=== PATIENT | female | born 1990 | race Two or more races ===

== ENCOUNTER 2019-08-05 07:16 | Day surgery (SDC) | payer OTHER ==
[2019-07-29 12:21] LABS: ABSOLUTE EOSINOPHILS # (AUTO) 0.1 10^3/uL (0.0-0.6); ABSOLUTE LYMPHOCYTES (AUTO) 1.5 10^3/uL (0.5-4.7); ABSOLUTE MONOCYTES (AUTO) 0.4 10^3/uL (0.1-1.4); ABSOLUTE NEUT (AUTO) 2.1 10^3/uL (1.7-8.2); BASOPHILS % (AUTO) 0.7 % (0-2); EOSINOPHILS % (AUTO) 2.3 % (0-6); HEMATOCRIT 37.6 % (36.0-47.0); HEMOGLOBIN 12.6 g/dL (12.0-15.5); LYMPHOCYTES % (AUTO) 36.3 % (13-45); MEAN CORPUSCULAR HEMOGLOBIN 29.9 pg (27.0-33.4); MEAN CORPUSCULAR HGB CONC 33.6 g/dL (32.0-36.0); MEAN CORPUSCULAR VOLUME 89 fl (80-97); MONOCYTES % (AUTO) 10.4 % (3-13); PLATELET COUNT 267 10^3/uL (150-450); RED BLOOD COUNT 4.23 10^6/uL (3.72-5.28); RED CELL DISTRIBUTION WIDTH 13.8 % (11.5-14.0); SEGMENTED NEUTROPHILS % (AUTO) 50.3 % (42-78); TOTAL CELLS COUNTED % (AUTO) 100 %; WHITE BLOOD COUNT 4.2 10^3/uL (4.0-10.5)
[2019-07-29 12:47] LABS: ANION GAP 9 (5-19); BLOOD UREA NITROGEN 13 mg/dL (7-20); CALCIUM 9.9 mg/dL (8.4-10.2); CARBON DIOXIDE 27 mmol/L (22-30); CHLORIDE 103 mmol/L (98-107); GLUCOSE 88 mg/dL (75-110); POTASSIUM 4.9 mmol/L (3.6-5.0)
[~2019-08-05 07:16] MED LIST: CEFAZOLIN 1 GM/D5W RTU 1 GM/50 ML RTUPB IV ONE; CEFAZOLIN 1 GM/D5W RTU 1 GM/50 ML RTUPB IV PRN; LACTATED RINGERS 1000 ML IV PRN; LIDOCAINE 0.5% INJ-PF (5 MG/ML) 50 ML SDV SUBCUT PRN
[2019-08-05] MEDS ORDERED: BUPIVACAINE HCL 0.25% /EPINEPHRINE INJ/PF 30 ML SDV ONE (07:27)
[2019-08-05] MEDS ORDERED: FAMOTIDINE INJ/PF 20 MG/2 ML SDV IV ONE (07:47)
[2019-08-05] MEDS ORDERED: SCOPOLAMINE HYDROBROMIDE 1.5 MG PATCH.TD72 ONE (07:47)
[2019-08-05] MEDS ORDERED: MIDAZOLAM 2 MG/2 ML INJ ONE ×2 (07:47→08:53)
[2019-08-05] MEDS ORDERED: ONDANSETRON HCL INJ/PF 4 MG/2 ML SDV ONE (08:53)
[2019-08-05] MEDS ORDERED: FENTANYL CITRATE INJ/PF 100 MCG/2 ML AMPUL ONE (08:53)
[2019-08-05] MEDS ORDERED: DEXAMETHASONE SOD PHOSPHATE INJ 4 MG/1 ML VIAL ONE (08:53)
[2019-08-05] MEDS ORDERED: MORPHINE SULFATE 10 MG/ML INJ ONE (08:54)
[2019-08-05] MEDS ORDERED: PROPOFOL INJ 200 MG/20 ML VIAL IV ONE (08:54)
[2019-08-05] MEDS ORDERED: RINGERS SOLUTION,LACTATED 1,000 ML IV ONE (09:00)
[2019-08-05] MEDS ORDERED: BUPIVACAINE HCL 0.25% /EPINEPHRINE INJ/PF 30 ML SDV INFIL ONE (09:44)
[2019-08-05] MEDS ORDERED: MEPERIDINE HCL/PF INJ 25 MG/1 ML DISP.SYRIN IV PRN (09:52)
[2019-08-05] MEDS ORDERED: FENTANYL CITRATE INJ/PF 100 MCG/2 ML AMPUL IV PRN ×3 (09:52)
[2019-08-05] MEDS ORDERED: DIPHENHYDRAMINE HCL 50 MG/ML VIAL IV PRN (09:52)
[2019-08-05] MEDS ORDERED: MORPHINE SULFATE 10 MG/ML INJ IV PRN (09:52)
[2019-08-05] MEDS ORDERED: PROMETHAZINE HCL INJ 25 MG/1 ML VIAL IV PRN ×2 (09:52)
--- NOTE | 2019-08-05 10:16 | Discharge Summary ---
Discharge Summary (SDC) - Discharge Final Diagnosis: hidradinitis. Date of Surgery: 08/05/19 Discharge Date: 08/05/19 Condition: Good Forms: ASU Anesthesia D/C Instruction, Discharge POC-Surgical Service Referrals: BECCA SANFORD MD [ACTIVE STAFF] - 08/13/19 10:45 am Discharge Diet: As Tolerated Discharge Activity: Activity As Tolerated - change dressing tomorrow ok to shower and place dry dressing after shower. Report the Following to Your Physician Immediately: Increase in Pain, Unusual Bleeding - needs f/u in 2wks
[2019-08-05] MEDS ORDERED: OXYCODONE-ACETAMINOPHEN 5-325 MG TABLET PO PRN (10:17)
--- NOTE | 2019-08-05 10:57 | Operative Report ---
Nonrecallable Operative Report DATE OF SURGERY: 08/05/19 PREOPERATIVE DIAGNOSIS: Left groin hidradenitis POSTOPERATIVE DIAGNOSIS: Left groin hidradenitis OPERATION: Excision of left groin hidradenitis SURGEON: BECCA SANFORD 1ST HOTEL OR MOTEL MANAGER: CHRISSY ANN ANESTHESIA: Moderate Sedation TISSUE REMOVED OR ALTERED: Skin and subcutaneous tissue left groin COMPLICATIONS: None ESTIMATED BLOOD LOSS: 5 cc INTRAOPERATIVE FINDINGS: see procedure note PROCEDURE: Patient was brought to the operating room and awake alert stable condition placed in the operative table supine position and given IV sedation for the procedure the left groin and perineum were prepped and draped in usual sterile fashion for the procedure. After appropriate site verification and timeout the area over the left labia majora was anesthetized with 1% lidocaine with epinephrine. Elliptical incision was made only 7 cm long by 2 cm wide to encompass both areas of hidradenitis and on the labia majora. Area dissection down through subcutaneous tissue and deep fat with the 15 blade to the deep subcu tissue to encompass both areas of hidradenitis. The skin and subcutaneous tissue were excised with a 15 blade. Hemostasis was obtained with Bovie cautery. The subcutaneous tissue was then reapproximated with interrupted 3-0 Vicryl sutures and the skin was closed with interrupted 2-0 nylon suture. Sterile dressing was applied which completed the procedure Estimated blood loss was less than 5 cc sponge needle counts were correct x2. Chrissy BEASLEY was present for the entire case for help with the wound retraction wound closure
[2019-08-05 12:15] VITALS: BP 94/58
== END 2019-08-05 12:00 | disposition home or self-care (01) ==
LOC: OROUT 07:16
PROVIDERS: ATTEND Surgery
DX: L73.2 Hidradenitis suppurativa (principal)
CPT/HCPCS: 36415; 85025; 81025; 80048; 88304 ×2; 11462; J2250; J3490; J0690; J1100; J3010; J2405; J2704; S0028; J2270

== ENCOUNTER → 2020-01-02 | Outpatient (CLI) | payer OTHER ==
--- NOTE | 2020-01-02 14:19 | RADIOLOGY REPORT (SQ) ---
EXAM DESCRIPTION: C SP 4 OR 5 VIEWS COMPLETED DATE/TIME: 01/02/2020 10:36 am REASON FOR STUDY: LUMP ON BACK OF NECK R22.1 LOCALIZED SWELLING, MASS AND LUMP, NECK COMPARISON: None. NUMBER OF VIEWS: Five views. TECHNIQUE: AP, lateral, obliques and odontoid radiographic images acquired of the cervical spine. LIMITATIONS: None. FINDINGS: MINERALIZATION: Normal. ALIGNMENT: Anatomic. VERTEBRAE: Vertebral bodies of normal height. DISCS: No significant osteophytes or sclerosis. Disc height maintained. FORAMINA: No osteophytes or foraminal narrowing. LATERAL AND POSTERIOR ELEMENTS: Facets, lateral masses and spinous processes without significant find ings. HARDWARE: None in the spine. SOFT TISSUES: No masses or calcifications. Lung apices clear. OTHER: No other significant finding. IMPRESSION: NO SIGNIFICANT RADIOGRAPHIC FINDING IN THE CERVICAL SPINE. TECHNICAL DOCUMENTATION: JOB ID: [id number] [employer]- All Rights Reserved Reading location - IP/workstation name: [email or web address]
== END ==
LOC: OD 10:15
PROVIDERS: ATTEND Physician Assistant
DX: R22.1 Localized swelling, mass and lump, neck (principal)
CPT/HCPCS: 72050